=== PATIENT | male | born 1945 | race Caucasian/White ===

== ENCOUNTER 2019-03-23 06:16 | Day surgery (SDC) | payer MEDICARE ==
[2019-03-23] MEDS ORDERED: Lactated Ringers 1,000 ML IV SCH (07:30)
[2019-03-23] MEDS ORDERED: Propofol 200 MG/20 ML SDV ONE ×2 (07:33→08:07)
[2019-03-23] MEDS ORDERED: fentaNYL 100 MCG/2 ML SDV ONE (07:33)
[2019-03-23] MEDS ORDERED: Midazolam 1 MG/ML 2 ML SDV ONE (07:33)
[2019-03-23 09:19] VITALS: PULSE 56
[2019-03-23 09:38] VITALS: BP 120/68
--- NOTE | 2019-03-23 15:12 | OR ---
DATE OF PROCEDURE: 03/23/2019 SURGEON: Saul Connor MD PREOPERATIVE DIAGNOSES: Gastroesophageal reflux disease and history of colon polyps. POSTOPERATIVE DIAGNOSES: Gastroesophageal reflux disease, hiatal hernia, duodenitis, colonic diverticulosis, small rectal polyp, and history of colon polyps. PROCEDURES PERFORMED: Esophagogastroduodenoscopy with biopsy of gastroesophageal junction, biopsy of antrum for CLOtest and for pathology to look for Helicobacter pylori, colonoscopy to the cecum with biopsy resection of small rectal polyp. ANESTHESIA: IV anesthesia with monitored anesthesia care. INDICATION: This 73-year-old white male is referred for upper and lower endoscopy. Indication for upper endoscopy is gastroesophageal reflux disease. He is taking a proton pump inhibitor. Indication for colonoscopy is a history of colon polyps. He says his last colonoscopic exam was done 3 years ago. I counseled him for upper and lower endoscopy with possible biopsy and/or polypectomy, including risks and alternatives, and he gave his informed consent to proceed. DESCRIPTION OF PROCEDURE: The patient was placed in the left lateral decubitus position. IV anesthesia was administered by the anesthesia service. Time-out was held. The flexible video Olympus upper endoscope was passed through his mouth, down his esophagus, and into his stomach. The scope was easily passed through the pylorus, into the duodenum, reaching its third portion. The scope was then slowly withdrawn, examining the mucosa throughout. The distal duodenum appeared unremarkable. There were some erythematous areas of the duodenal bulb consistent with duodenitis. The scope was brought back up through the pylorus and into the antrum. The antrum appeared unremarkable. The scope was retroflexed. The proximal stomach appeared unremarkable, except for evidence of a hiatal hernia. The scope was straightened. We obtained antral biopsies for CLOtest and for pathology to look for Helicobacter pylori. The scope was then brought up through about 2 cm hiatal hernia and then to the GE junction. This was abnormal with fingers of gastric mucosa going proximally up into the esophagus with also an additional small island of gastric mucosa proximal to the GE junction. We obtained multiple, totalling at least 6, biopsies of the gastroesophageal junction. The scope was then brought up through the remainder of the esophagus, which otherwise appeared unremarkable and it was removed. Next, a rectal exam was performed, which was unremarkable. The flexible video Olympus colonoscope was introduced through his anus, up his rectum, and out his colon, all the way to the cecum. En route, we saw a few scattered left-sided diverticula. There was no bleeding or inflammation associated with them. Once the cecum was reached, the scope was slowly withdrawn, examining the mucosa throughout. No additional mucosal abnormalities were noted until we reached the rectum. Here we saw a small polyp, which was removed with 2 bites of biopsy forceps. The scope was retroflexed with the distal rectum appearing unremarkable. The scope was straightened and removed. He tolerated the procedure well. Saul Connor MD /[id number]
== END 2019-03-23 09:42 | disposition home or self-care (01) ==
LOC: JP.SDS 06:16
PROVIDERS: ATTEND Surgery
DX: Z12.11 Encounter for screening for malignant neoplasm of colon (principal); K62.1 Rectal polyp; K57.30 Diverticulosis of large intestine without perforation or abscess without bleeding; K21.0 Gastro-esophageal reflux disease with esophagitis; K44.9 Diaphragmatic hernia without obstruction or gangrene; K29.80 Duodenitis without bleeding; K31.89 Other diseases of stomach and duodenum; I12.9 Hypertensive chronic kidney disease with stage 1 through stage 4 chronic kidney disease, or unspecified chronic kidney disease; N18.3 Chronic kidney disease, stage 3 (moderate); Z86.010 Personal history of colon polyps; Z86.711 Personal history of pulmonary embolism; Z86.718 Personal history of other venous thrombosis and embolism
CPT/HCPCS: 43239; 45380; 87081; J2250; J2704; J3010; J7120; 88305